=== PATIENT | male | born 1965 | race Caucasian/White ===

== ENCOUNTER 2016-08-17 11:43 | Emergency (ER) | payer BC ==
[2016-08-17 11:55] VITALS: TEMP 98.4; BMI 35.3
[2016-08-17] MEDS ORDERED: SODIUM CHLORIDE 1,000 ML IV ONE ×2 (12:48→16:07)
--- NOTE | 2016-08-17 12:49 | PDOC ---
History of Present Illness - History of Present Illness Initial Comments: 08/17/16 16:12 The patient is a 51 year old male, with a significant past medical history of NIDDM, HTN, HLD, and neuropathy. who presents to the emergency department from urgent care with lightheadedness. The patient states he has been off his medications since fall secondary to insurance problems, however, reports having insurance now. As per the patients lab from urgent care, his blood glucose is 350 and his urine contained ketones. The patient states he otherwise feels well. He denies chest pain, abd pain, palpitations or diaphoresis. He denies shortness of breath, headache, vision changes. He denies fever, chills , nausea, vomit, diarrhea and constipation. He denies dysuria, frequency, urgency and hematuria. Allergies: escitalopram oxalate <Leidy Nassar - Last Filed: 08/17/16 16:12> <Edwin Augustine - Last Filed: 08/18/16 08:18> - General Chief Complaint: Blood Sugar Problem Stated Complaint: SUGAR PROBLEM Time Seen by Provider: 08/17/16 12:47 Past History <Leidy Nassar - Last Filed: 08/17/16 16:12> - Past Medical History Diabetes: Yes HTN: Yes - Psycho/Social/Smoking Cessation Hx Suicidal Ideation: No Smoking History: Never smoked <Edwin Augustine - Last Filed: 08/18/16 08:18> - Past Medical History Allergies/Adverse Reactions: Allergies Allergy/AdvReac Type Severity Reaction Status Date / Time escitalopram oxalate Allergy Verified 08/17/16 11:52 [From [email or web address]] Home Medications: Ambulatory Orders Alogliptin Maged/Pioglitazone [Oseni 25-30 mg Tablet] 1 each PO DAILY #30 tablet 08/17/16 Aspirin [ASA -] 81 mg PO DAILY 08/17/16 Lisinopril [Prinivil] 20 mg PO DAILY #30 tablet 08/17/16 Metformin HCl [Glucophage -] 1,000 mg PO BID #120 tablet 08/17/16 Review of Systems - Review of Systems Able to Perform ROS?: Yes Comments:: 08/17/16 16:12 CONSTITUTIONAL: No reported: Fever, Chills, Diaphoresis, Generalized Weakness, Malaise, Loss of Appetite HEENT: No reported: Rhinorrhea, Nasal Congestion, Throat Pain, Throat Swelling, Difficulty Swallowing, Mouth Swelling, Ear Pain, Eye Pain, Visual Changes CARDIOVASCULAR: (+) Lightheadedness, No reported: Chest Pain, Syncope, Palpitations, Irregular Heart Rate, Peripheral Edema RESPIRATORY: No reported: Cough, Shortness of Breath, SOB with Exertion, Orthopnea, Wheezing , Stridor, Hemoptysis GASTROINTESTINAL: No reported: Abdominal pain, Abdominal Distension, Nausea, Vomiting, Diarrhea, Constipation, Melena, Hematochezia GENITOURINARY: No reported: Dysuria, Frequency, Urgency, Hesitancy, Flank Pain, Genital Pain MUSCULOSKELETAL: No reported: Myalgia, Arthralgia, Joint Swelling, Back pain, Neck Pain SKIN: No reported: Rash, Itching, Pallor HEMEATOLOGIC/IMMUNOLOGIC: No reported: Easy Bleeding, Easy Bruising, Lymphadenopathy, Frequent infections ENDOCRINE: No reported: Unexplained Weight Gain, Unexplained Weight Loss, Heat Intolerance , Cold Intolerance NEUROLOGIC: No reported: Headache, Focal Weakness, Paresthesias, Vertigo, Lightheadedness, Unsteady Gait, Seizure, Mental Status Changes, Incontinence PSYCHIATRIC: No reported: Anxiety, Depression <Leidy Nassar - Last Filed: 08/17/16 16:12> *Physical Exam - Vital Signs Last Vital Signs Temp Pulse Resp BP Pulse Ox 98.4 F 96 H 20 135/83 95 08/17/16 11:52 08/17/16 11:52 08/17/16 11:52 08/17/16 11:52 08/17/16 11:52 - Physical Exam Comments: 08/17/16 16:12 GENERAL: The patient is awake, alert, and fully oriented, Nontoxic - in no acute distress. HEAD: Normocephalic, atraumatic. EYES: extraocular movements intact, sclera anicteric, conjunctiva clear. ENT: Normal voice, Moist mucous membranes. NECK: Normal range of motion, supple LUNGS: Breath sounds equal, clear to auscultation bilaterally. No wheezes, no rhonchi, no rales. HEART: Regular rate and rhythm, without murmur, rub or gallop. ABDOMEN: Soft, nontender, normoactive bowel sounds. No guarding, no rebound.No CVA tenderness EXTREMITIES: Normal range of motion, no edema. No clubbing or cyanosis. No cords, erythema, or tenderness. NEUROLOGICAL: No facial assymetry, Normal speech, PSYCH: Normal mood, normal affect. SKIN: Warm, Dry, normal turgor, <Lonnie Nassaranda - Last Filed: 08/17/16 16:12> - Vital Signs Last Vital Signs Temp Pulse Resp BP Pulse Ox 98.4 F 96 H 20 135/83 95 08/17/16 11:52 08/17/16 11:52 08/17/16 11:52 08/17/16 11:52 08/17/16 11:52 <Edwin Augustine - Last Filed: 08/18/16 08:18> Heart Score/ECG Review - ECG Impressions Comment:: 08/17/16 14:18 Twelve-lead EKG was performed and reviewed by me. There is normal sinus rhythm with a normal rate. Rate of 84 The axis is normal. The intervals are normal. There is normal R wave progression Nonspecific T wave abnormality <Edwin Auugstine - Last Filed: 08/18/16 08:18> ED Treatment Course - LABORATORY CBC & Chemistry Diagram: 08/17/16 12:57 08/17/16 12:57 - ADDITIONAL ORDERS Additional order review: Laboratory Results 08/17/16 08/17/16 08/17/16 14:48 13:17 12:57 VBG pH POC VBG pCO2 POC VBG pO2 Mixed VBG HCO3 Sodium 134 L Potassium 3.9 Chloride 98 Carbon Dioxide 22 Anion Gap 14 BUN 13 Creatinine 0.6 L Creat Clearance w eGFR > 60 Random Glucose 269 H Calcium 8.5 Magnesium 1.9 Total Bilirubin 1.2 H AST 35 ALT 75 Alkaline Phosphatase 102 Total Protein 6.8 Albumin 3.6 Urine Color Ltyellow Urine Appearance Slcloudy Urine pH 5.0 Urine Protein 2+ H Urine Glucose (UA) 3+ H Urine Ketones 2+ H Urine Blood 1+ H Urine Nitrite Negative Urine Bilirubin Negative Urine Urobilinogen Negative Ur Leukocyte Esterase 2+ H Urine RBC 40 Urine WBC 18 Ur Epithelial Cells Rare Urine Mucus Rare Acetone, Qual Positive small 1+ 08/17/16 12:48 VBG pH 7.39 POC VBG pCO2 39.5 POC VBG pO2 38.2 Mixed VBG HCO3 23.4 Sodium Potassium Chloride Carbon Dioxide Anion Gap BUN Creatinine Creat Clearance w eGFR Random Glucose Calcium Magnesium Total Bilirubin AST ALT Alkaline Phosphatase Total Protein Albumin Urine Color Urine Appearance Urine pH Urine Protein Urine Glucose (UA) Urine Ketones Urine Blood Urine Nitrite Urine Bilirubin Urine Urobilinogen Ur Leukocyte Esterase Urine RBC Urine WBC Ur Epithelial Cells Urine Mucus Acetone, Qual 08/17/16 12:57 RBC 5.27 MCV 85.0 MCHC 34.5 RDW 13.1 MPV 8.8 Neutrophils % 74.6 Lymphocytes % 17.4 Monocytes % 6.5 Eosinophils % 0.9 Basophils % 0.6 - Medications Given in the ED: ED Medications Discontinued Medications Generic Name Dose Route Start Last Admin Trade Name Sherron PRN Reason Stop Dose Admin Sodium Chloride 1,000 mls @ 1,000 mls/hr 08/17/16 12:48 08/17/16 13:34 Normal Saline - IV 08/17/16 13:47 1,000 mls/hr .Q1H ONE Administration <Leidy Nassar - Last Filed: 08/17/16 16:12> - LABORATORY CBC & Chemistry Diagram: 08/17/16 12:57 08/17/16 12:57 <Edwin Augustine - Last Filed: 08/18/16 08:18> Medical Decision Making - Medical Decision Making 08/17/16 13:47 51y M hx of htn, hl, niddm presents with generalized weakness and feelng lightheaded for the past 2 days, went to urgent care who found bgm in 350s with urine ketones so sent the pt to the ED for evaluation, pt otherwise feels well. exam unremarkable suspect uncontoled diabets, will r/o dka will obtain ekg to screen for arrhtmnia fluids will recheck bgm A portion of this note was documented by scribe services under my direction. I have reviewed the details of the note, within reason, and agree with the documentation with the following case summary and management plan written by me 08/17/16 16:17 labs reviewed noted for +1 ketones no anion gap bicarb normal bgm 260s here trop was sent as pt was complaining of chest/epigastric discmfort is constant for the past 2 days (states it isnt pain, but it feels like something is rolling around in there and), no exertional symptoms, sob, diaprheosis ekg is non ischemic 08/17/16 17:35 trop neg pt feleing well, wants to go home will dc with pmd fu return precautions were discussed I discussed the physical exam findings, ancillary test results and final diagnoses with the patient. I answered all of the patient's questions. The patient was satisfied with the care received and felt comfortable with the discharge plan and treatment plan. The patient will call their primary care physician within 24 hours to arrange follow-up and will return to the Emergency Department with any new, persistent or worsening symptoms. <Edwin Augustine - Last Filed: 08/18/16 08:18> *DC/Admit/Observation/Transfer - Attestations Scribe Attestion: 08/17/16 16:12 Documentation prepared by Leidy Nassar, acting as medical technologist microbiology for Edwin Augustine MD <Leidy Nassar - Last Filed: 08/17/16 16:12> - Discharge Dispostion Admit: No <Edwin Augustine - Last Filed: 08/18/16 08:18> Diagnosis at time of Disposition: Hyperglycemia - Prescriptions Prescriptions: Metformin HCl [Glucophage -] 1,000 mg PO BID #120 tablet Alogliptin Maged/Pioglitazone [Oseni 25-30 mg Tablet] 1 each PO DAILY #30 tablet Lisinopril [Prinivil] 20 mg PO DAILY #30 tablet - Referrals Referrals: Emerson Espinoza MD [Staff Physician] - - Patient Instructions Printed Discharge Instructions: DI for Hyperglycemia -- Adult Additional Instructions: Return to the emergency department immediately with ANY new, persistent or worsening symptoms. Continue taking your medications as prescribed You MUST call and follow up with your doctor within 1 week for further evaluation of your symptoms. Results were discussed with you. Please make sure your doctor reviews the results of your emergency evaluation. Print Language: MOHAWK
[2016-08-17 13:38] LABS: VENOUS BLOOD GAS HCO3 23.4 meq/L (19-25); VENOUS PH 7.39 (7.32-7.42)
[2016-08-17 13:58] LABS: BASOPHIL 0.6 % (0-2.0); EOSINOPHIL 0.9 % (0-4.5); MCH 29.3 pg (25.7-33.7); MCHC 34.5 g/dl (32.0-35.9); MEAN PLT VOLUME 8.8 fl (7.5-11.1); NEUTROPHILS 74.6 % (42.8-82.8); PLATELET COUNT 155 K/MM3 (134-434); RDW 13.1 % (11.9-15.9); WHITE BLOOD COUNT 8.7 K/mm3 (4.0-10.0)
[2016-08-17 14:56] LABS: ALBUMIN 3.6 g/dl (3.4-5.0); ALK PHOS 102 U/L (45-117); ANION GAP 14 (8-16); BILIRUBIN,TOTAL 1.2 mg/dL (0.2-1.0); CALCIUM 8.5 mg/dL (8.5-10.1); CO2 22 mmol/L (21-32); CREATININE 0.6 mg/dL (0.7-1.3); GLUCOSE,RANDOM 269 mg/dL (74-106); SGPT/ALT 75 U/L (12-78); TOT PROT 6.8 g/dl (6.4-8.2)
[2016-08-17 15:00] LABS: MAGNESIUM 1.9 mg/dL (1.8-2.4)
[2016-08-17 15:01] LABS: SGOT/AST 35 U/L (15-37)
[2016-08-17 15:07] LABS: URINE APPEARANCE SLCLOUDY; URINE BILIRUBIN NEGATIVE (NEGATIVE); URINE COLOR LTYELLOW; URINE GLUCOSE (UA) 3+ (NEGATIVE); URINE KETONE 2+ (NEGATIVE); URINE NITRITE NEGATIVE (NEGATIVE); URINE UROBILINOGEN NEGATIVE E.U./dl (0.2-1.0)
[2016-08-17 15:11] LABS: URINE BLOOD 1+ (NEGATIVE); URINE LEUK ESTERASE 2+ (NEGATIVE); URINE PROTEIN 2+ (NEGATIVE)
[2016-08-17 15:13] LABS: URINE MUCUS RARE; URINE RBC 40 /hpf (0-3); URINE WBC 18 /hpf (3-5)
--- NOTE | 2016-08-17 16:33 | EKG ---
Test Reason : Blood Pressure : / mmHG Vent. Rate : 084 BPM Atrial Rate : 084 BPM P-R Int : 168 ms QRS Dur : 090 ms QT Int : 350 ms P-R-T Axes : 042 053 035 degrees QTc Int : 413 ms NORMAL SINUS RHYTHM NONSPECIFIC T WAVE ABNORMALITY ABNORMAL ECG NO PREVIOUS ECGS AVAILABLE Confirmed by RENUKA BALTAZAR, CARMEN ([id number]) on 08/17/2016 4:33:05 PM Referred By: Confirmed By:CARMEN GRAYSON MD
[2016-08-17 18:46] LABS: TROPONIN I < 0.02 ng/ml (0.00-0.05)
[2016-08-17 19:22] VITALS: BP 145/88; PULSE 77
== END 2016-08-17 19:00 | disposition home or self-care (01) ==
LOC: JER 11:43
PROC: 3E0337Z Introduction of Electrolytic and Water Balance Substance into Peripheral Vein, Percutaneous Approach (ICD-10-PCS; principal; 2016-08-17)
DX: E11.65 Type 2 diabetes mellitus with hyperglycemia (principal); Z79.84 Long term (current) use of oral hypoglycemic drugs; I10 Essential (primary) hypertension; E78.5 Hyperlipidemia, unspecified; G62.9 Polyneuropathy, unspecified; Z79.82 Long term (current) use of aspirin
CPT/HCPCS: 36415; 80053; 81003; 81015; 82009; 82550; 82803; 83735; 84484; 85025; 93005; 93010; 99282-25

== ENCOUNTER 2022-08-28 04:22 | Day surgery (SDC) | payer BC ==
[2022-08-24 15:51] VITALS: BMI 36.1
[2022-08-28 09:58] VITALS: BP 132/87; PULSE 81; RESP 20; TEMP 97.2
== END 2022-08-28 10:30 | disposition home or self-care (01) ==
LOC: JASU-SURG 04:22
PROVIDERS: ATTEND Urology
DX: Z53.8 Procedure and treatment not carried out for other reasons (principal)
CPT/HCPCS: 82962

== ENCOUNTER 2022-10-09 04:32 | Day surgery (SDC) | payer BC, OTHER ==
[2022-10-04 09:35] VITALS: BMI 36.3
[2022-10-09] MEDS ORDERED: PROPOFOL 20 ML ONE (09:58)
[2022-10-09] MEDS ORDERED: MIDAZOLAM HCL 2 MG/2 ML SINGLE DOSE VIAL ONE (09:58)
[2022-10-09] MEDS ORDERED: ONDANSETRON 4 MG/2 ML VIAL IVPUSH PRN (10:53)
[2022-10-09] MEDS ORDERED: oxyCODONE HCL 5 MG TABLET PO PRN (10:53)
[2022-10-09] MEDS ORDERED: LACTATED RINGERS SOLUTION 1,000 ML IV SCH (11:00)
[2022-10-09 13:36] VITALS: RESP 18
[2022-10-09 14:28] VITALS: BP 110/64; PULSE 80; TEMP 97
== END 2022-10-09 14:30 | disposition home or self-care (01) ==
LOC: JASU-SURG 04:32
PROVIDERS: ATTEND Urology
PROC: 0T7D8ZZ Dilation of Urethra, Via Natural or Artificial Opening Endoscopic (ICD-10-PCS; 2022-10-09)
PROC: 0T9B8ZX Drainage of Bladder, Via Natural or Artificial Opening Endoscopic, Diagnostic (ICD-10-PCS; principal; 2022-10-09 10:00)
DX: N30.20 Other chronic cystitis without hematuria (principal); N32.89 Other specified disorders of bladder; N40.0 Benign prostatic hyperplasia without lower urinary tract symptoms
CPT/HCPCS: 82962; 88305-TC; 88342-TC; 94760